=== PATIENT | female | born 1950 | race Two or more races ===

== ENCOUNTER 2019-11-16 08:58 | Outpatient (CLI) | payer OTHER | END 2019-11-16 09:08 | disposition home or self-care (01) | LOC: TOM 08:58 | PROVIDERS: ATTEND Internal Medicine Gastroenterology | DX: R10.84 Generalized abdominal pain (principal); R19.4 Change in bowel habit; K56.600 Partial intestinal obstruction, unspecified as to cause; K57.31 Diverticulosis of large intestine without perforation or abscess with bleeding ==